=== PATIENT | female | born 1985 | race Caucasian/White ===

== ENCOUNTER 2017-08-22 16:18 | Emergency (ER) | payer OTHER ==
[~2017-08-22] VITALS: Ht 162.6 cm; Wt 97.5 kg
[2017-08-22] MEDS ORDERED: TESSALON PERLE100 MG PO (16:42)
[2017-08-22] MEDS ORDERED: METHYLPREDNISOLO4 M1 PO (16:42)
[2017-08-22] MEDS ORDERED: AUGMENTIN 875-1 EACH PO (16:42)
== END 2017-08-22 17:03 | disposition home or self-care (01) ==
LOC: ED 16:18
DX: J40 Bronchitis, not specified as acute or chronic (principal); F17.200 Nicotine dependence, unspecified, uncomplicated; Z86.19 Personal history of other infectious and parasitic diseases
CPT/HCPCS: 99282